=== PATIENT | male | born 1965 | race Caucasian/White ===

== ENCOUNTER 2023-06-14 21:43 | Emergency (ER) | payer OTHER ==
[~2023-06-14] VITALS: Ht 170.2 cm; Wt 95.5 kg
[2023-06-14 21:47] VITALS: TEMP 98.2
[2023-06-14] MEDS ORDERED: methylPREDNISolone Sod Succ 125 MG/2 ML VIAL IV ONE (22:00)
[2023-06-14] MEDS ORDERED: Albuterol 0.083% Neb Soln 2.5 MG/3 ML UD IH ONE (22:00)
[2023-06-14] MEDS ORDERED: EPINEPHrine 0.3 MG/0.3 ML Auto Injector IM ONE (22:00)
[2023-06-15 00:47] VITALS: BP 148/117; PULSE 93
[2023-06-15] MEDS ORDERED: predniSONE 50 MG,predniSONE 10 MG PO ONE (01:00)
== END 2023-06-15 01:01 | disposition home or self-care (01) ==
LOC: COL.ER 21:43
DX: T78.05XA Anaphylactic reaction due to tree nuts and seeds, initial encounter (principal); R03.0 Elevated blood-pressure reading, without diagnosis of hypertension
CPT/HCPCS: J2930; J7512